=== PATIENT | female | born 1970 | race Caucasian/White ===

== ENCOUNTER 2018-03-21 18:19 | Emergency (ER) | payer BC ==
[2018-03-21] MEDS ORDERED: Lorazepam 2 MG/ML VIAL ONE (18:58)
[2018-03-21 19:02] LABS: #Basophils 0.1 thou/uL (0.0-0.2); #Lymphocytes 2.4 thou/uL (1.20-3.40); #Monocytes 0.7 thou/uL (0.11-0.59); #Neutrophils 4.4 thou/uL (1.40-6.50); %Basophils 1.6 % (0.0-1.0); %Eosinophils 0.3 % (0.0-10.0); %Monocytes 8.7 % (0.0-10.0); %Neutrophils 57.4 % (42.0-75.0); Hemoglobin 12.3 g/dL (12.0-16.0); Mean Corpuscular HGB CONC 33.4 g/dL (32.0-36.0); Mean Corpuscular Hemoglobin 29.3 pg (27.0-31.0); Mean Corpuscular Volume 87.8 fl (81.0-99.0); Mean Platelet Volume 6.5 fL (7.4-10.4); Platelet Count 265 thou/uL (130-400); Red Blood Cell (RBC) Count 4.18 mill/uL (4.20-5.40); White Blood Cell (WBC) Count 7.6 thou/uL (4.8-10.8)
[2018-03-21] MEDS ORDERED: Ondansetron HCl/PF 4 MG/2 ML Vial ONE (19:16)
[2018-03-21 19:26] LABS: ALT (SGPT) 54 U/L (8-55); AST (SGOT) 69 U/L (5-34); Albumin 4.2 g/dL (3.5-5.0); Alkaline Phosphatase 142 U/L (40-150); Anion Gap 13 mmol/L (10-20); BUN (Urea Nitrogen) 14 mg/dL (7.0-18.7); Bilirubin, Total 0.7 mg/dL (0.2-1.2); CK (CPK) 107 U/L (29-168); Calc. Creatinine Clearance 0 mL/min (70-130); Calcium 9.5 mg/dL (7.8-10.44); Carbon Dioxide 22 mmol/L (22-29); Chloride 106 mmol/L (98-107); Estimated GFR-MDRD 67; Globulin 3.4 g/dL (2.4-3.5); Glucose 78 mg/dL (70-105); Potassium 4.3 mmol/L (3.5-5.1); Protein, Total 7.6 g/dL (6.0-8.3); Sodium 137 mmol/L (136-145)
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
[2018-03-21 19:41] LABS: CKMB 0.5 ng/mL (0-6.6); Troponin I Less than 0.010 ng/mL (< 0.028)
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
[2018-03-21] MEDS ORDERED: Ketorolac Tromethamine 30 MG/ML VIAL ONE (20:53)
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
== END 2018-03-21 21:27 | disposition home or self-care (01) ==
LOC: ERS 18:19
DX: T67.5XXA Heat exhaustion, unspecified, initial encounter (principal); S93.602A Unspecified sprain of left foot, initial encounter; R55 Syncope and collapse; I10 Essential (primary) hypertension; M06.9 Rheumatoid arthritis, unspecified; E03.9 Hypothyroidism, unspecified; F41.9 Anxiety disorder, unspecified; F32.9 Major depressive disorder, single episode, unspecified; Z79.52 Long term (current) use of systemic steroids; Z79.899 Other long term (current) drug therapy; X58.XXXA Exposure to other specified factors, initial encounter
CPT/HCPCS: 36415; 70450; 71045; 72125; 80053; 82553; 84484; 85025; 93005; 94760; 96361; 96374; 96375; J1885; J2060; J2405

== ENCOUNTER 2018-05-18 08:37 | Outpatient (CLI) | payer BC | END 2018-05-18 08:38 | disposition home or self-care (01) | LOC: BICMAMMO 08:37 | PROVIDERS: ATTEND Internal Medicine Rheumatology | DX: M81.0 Age-related osteoporosis without current pathological fracture (principal) | CPT/HCPCS: 77080 ==

== ENCOUNTER 2018-07-27 15:16 | Outpatient (CLI) | payer BC ==
--- NOTE | 2018-07-27 18:09 | RAD ---
THREE VIEWS RIGHT FOOT: Date: 07-27-18 Provided Clinical History: Inflammatory polyarthropathy. FINDINGS: There is no evidence for fracture or other acute osseous abnormality. Alignment appears anatomic. Evelyn nt spaces appear preserved. No erosive changes are seen. Post-operative changes are seen involving th e calcaneus and first metatarsal. Mild osteophyte formation at the first TMT joint. IMPRESSION: No evidence for an acute osseous abnormality or significant arthropathy. POS: [facility]
--- NOTE | 2018-07-27 18:14 | RAD ---
TWO VIEWS RIGHT HAND: Date: 07-27-18 History: Inflammatory polyarthropathy. Osteoporosis. FINDINGS: There is no evidence of a fracture or dislocation involving the right hand. No joint space narrowing or articular erosions are seen. IMPRESSION: No acute osseous abnormality right hand. POS: [facility]
--- NOTE | 2018-07-27 18:15 | RAD ---
TWO VIEWS LEFT HAND: Date: 07-27-18 History: Inflammatory polyarthropathy. Osteoporosis. History of fracture of distal ulna and radius. FINDINGS: There is a remote fracture deformity involving the distal left radial metaphysis with slight loss of volar tilt of the radius due to fracture deformity. No acute fracture is seen. There is no evidence o f a dislocation. No significant joint space narrowing is seen. No articular erosions are identified. IMPRESSION: 1. No acute osseous abnormality. 2. Remote fracture deformity of the distal left radius. POS: [facility]
--- NOTE | 2018-07-27 18:21 | RAD ---
LEFT FOOT RADIOGRAPHS THREE VIEWS: Date: 07-27-18 Provided Clinical History: Inflammatory polyarthropathy. FINDINGS: Comparison 03-21-18. There is no evidence for fracture or other acute osseous abnormality. Alignment appears anatomic. Evelyn nt spaces appear preserved. No erosive changes are seen. Small plantar and posterior calcaneal enthes ophytes are noted. IMPRESSION: No evidence for an acute osseous abnormality or significant arthropathy. POS: [facility]
== END 2018-07-27 15:17 | disposition home or self-care (01) ==
LOC: BICRAD 15:16
PROVIDERS: ATTEND Allergy & Immunology Allergy
DX: M06.4 Inflammatory polyarthropathy (principal); M81.8 Other osteoporosis without current pathological fracture

== ENCOUNTER 2018-10-19 10:10 | Outpatient (CLI) | payer BC ==
--- NOTE | 2018-10-19 12:14 | CT ---
CT ABDOMEN AND PELVIS WITH IV AND ORAL CONTRAST: HISTORY: Lupus enteritis. Abdominal pain. Normal EGD and colonoscopy, per the patient. COMPARISON: 01/22/2017 FINDINGS: The lung bases are clear. The patient is post cholecystectomy and hysterectomy. The liver, spleen, pancreas, and adrenal glands are normal. Nonobstructing renal calculi are present. Renal cysts are again seen. No free air, free fluid, or lymphadenopathy is seen in the abdomen or pelvis. The small bowel loops are not abnormally dilated. No wall thickening of the small bowel loops is seen. There is fecal mat erial in the colon. Degenerative changes are present in the spine. There is no evidence of aneurysm al dilatation of the abdominal aorta. IMPRESSION: 1. No acute process. 2. Nonobstructing bilateral renal calculi. 3. Bilateral renal cysts. POS: [facility]
== END 2018-10-19 10:11 | disposition home or self-care (01) ==
LOC: BICCT 10:10
DX: R10.9 Unspecified abdominal pain (principal); N28.1 Cyst of kidney, acquired
CPT/HCPCS: 74177

== ENCOUNTER 2019-08-25 18:48 | Emergency (ER) | payer BC ==
[2019-08-25 19:42] LABS: #Basophils 0.1 thou/uL (0.0-0.2); #Lymphocytes 1.6 thou/uL (1.20-3.40); #Monocytes 0.5 thou/uL (0.11-0.59); #Neutrophils 3.8 thou/uL (1.40-6.50); %Basophils 1.5 % (0.0-1.0); %Eosinophils 0.4 % (0.0-10.0); %Lymphocytes 26.2 % (21.0-51.0); %Monocytes 8.9 % (0.0-10.0); Mean Corpuscular Hemoglobin 29.1 pg (27.0-31.0); Mean Corpuscular Volume 91.1 fL (78.0-98.0); Mean Platelet Volume 7.1 fL (7.4-10.4); Platelet Count 306 thou/uL (130-400); RBC Distribution Width 13.6 % (11.5-14.5); Red Blood Cell (RBC) Count 4.45 mill/uL (4.20-5.40); White Blood Cell (WBC) Count 6.1 thou/uL (4.8-10.8)
[2019-08-25] MEDS ORDERED: Mag-Al 1200 mg/1200 mg/30 ML UDCUP ONE (19:45)
[2019-08-25] MEDS ORDERED: Promethazine HCl 25 MG/ML VIAL ONE (19:45)
[2019-08-25] MEDS ORDERED: Lidocaine Viscous Sol 2% 15 ml UD Cup ONE (19:45)
[2019-08-25] MEDS ORDERED: Nitroglycerin 0.4 MG TAB 1 EACH ONE (19:46)
[2019-08-25 20:01] LABS: ALT (SGPT) 18 U/L (8-55); AST (SGOT) 32 U/L (5-34); Albumin 4.5 g/dL (3.5-5.0); Alkaline Phosphatase 124 U/L (40-110); Anion Gap 15 mmol/L (10-20); BUN (Urea Nitrogen) 10 mg/dL (7.0-18.7); Bilirubin, Total 0.5 mg/dL (0.2-1.2); Calc. Creatinine Clearance 0 mL/min (70-130); Calcium 9.7 mg/dL (7.8-10.44); Carbon Dioxide 26 mmol/L (22-29); Chloride 101 mmol/L (98-107); Estimated GFR-MDRD 68; Globulin 3.5 g/dL (2.4-3.5); Glucose 92 mg/dL (70-105); Lipase 83 U/L (8-78); Potassium 3.7 mmol/L (3.5-5.1); Sodium 138 mmol/L (136-145)
[2019-08-25] MEDS ORDERED: Metoclopramide HCl 10 MG/2 ML VIAL ONE (20:28)
[2019-08-25] MEDS ORDERED: diphenhydrAMINE 50 MG/ML VIAL ONE (20:28)
== END 2019-08-25 21:20 | disposition home or self-care (01) ==
LOC: ERS 18:48
DX: K22.4 Dyskinesia of esophagus (principal); I10 Essential (primary) hypertension; E06.3 Autoimmune thyroiditis; F41.9 Anxiety disorder, unspecified; F32.9 Major depressive disorder, single episode, unspecified; Z79.899 Other long term (current) drug therapy
CPT/HCPCS: 80053; 83690; 84484; 85025; 93005; 96365; 96375; J1200; J2550; J2765

== ENCOUNTER 2023-09-21 18:46 | Inpatient (IN) | payer BC ==
[~2023-09-21 18:46] MED LIST: Iopamidol-370 76% 500 ML MDV (1 ML CHARGE) ONE
[2023-09-21 19:26] LABS: #Eosinphils 0.1 thou/uL (0.0-0.7); #Monocytes 1.2 thou/uL (0.11-0.59); #Neutrophils 8.1 thou/uL (1.40-6.50); %Basophils 0.3 % (0.0-1.0); %Eosinophils 0.7 % (0.0-10.0); %Lymphocytes 20.7 % (21.0-51.0); %Monocytes 9.8 % (0.0-10.0); %Neutrophils 68.2 % (42.0-75.0); Hematocrit 36.5 % (36.0-47.0); Hemoglobin 11.2 g/dL (12.0-16.0); Mean Corpuscular HGB CONC 30.7 g/dL (32.0-36.0); Mean Corpuscular Hemoglobin 23.9 pg (27.0-31.0); Mean Platelet Volume 9.7 fL (7.4-10.4); Platelet Count 439 10x3/uL (130-400); Red Blood Cell (RBC) Count 4.68 mill/uL (4.20-5.40); White Blood Cell (WBC) Count 11.9 10x3/uL (4.8-10.8)
[2023-09-21] MEDS ORDERED: fentaNYL 50 mcg/mL 1 mL Vial ONE (19:26)
[2023-09-21 19:39] LABS: INR-International Normal Ratio 1.1; PTT 35.8 sec (22.9-36.1); Prothrombin Time 14.8 sec (12.0-14.7)
[2023-09-21 19:54] LABS: Troponin I Less than 0.010 ng/mL (< 0.028)
[2023-09-21 20:12] LABS: ALT (SGPT) 9 U/L (8-55); AST (SGOT) 18 U/L (5-34); Albumin 3.9 g/dL (3.5-5.0); Alkaline Phosphatase 94 U/L (40-110); Anion Gap 16 mmol/L (10-20); BUN (Urea Nitrogen) 14 mg/dL (9.8-20.1); Calc. Creatinine Clearance 0 mL/min (70-130); Calcium 9.9 mg/dL (7.8-10.44); Carbon Dioxide 23 mmol/L (22-29); Chloride 99 mmol/L (98-107); Estimated GFR 65; Globulin 4.3 g/dL (2.4-3.5); Glucose 100 mg/dL (70-105); Potassium 3.7 mmol/L (3.5-5.1); Protein, Total 8.2 g/dL (6.0-8.3); Sodium 134 mmol/L (136-145)
[2023-09-21 20:40] LABS: SARS-CoV-2 NAA Rapid Test Not Detected (NotDetected)
[2023-09-21] MEDS ORDERED: Acetaminophen 325 MG TAB PO PRN (20:45)
[2023-09-21] MEDS ORDERED: Ondansetron PF 4 MG/2 ML Vial IVP PRN (20:45)
[2023-09-21] MEDS: Morphine 2 MG/ML VIAL SLOW IVP PRN (23:31)
[2023-09-21 23:35] VITALS: BMI 28.1
[2023-09-22] MEDS: Metoprolol Tartrate 25 MG TAB PO SCH ×2 (01:31→09:48)
[2023-09-22] MEDS: HYDROcodone/Acetaminophen 10/325 mg Tablet PO PRN ×2 (02:03→06:31)
[2023-09-22 04:52] LABS: #Eosinphils 0.1 thou/uL (0.0-0.7); #Monocytes 1.1 thou/uL (0.11-0.59); #Neutrophils 5.4 thou/uL (1.40-6.50); %Basophils 0.3 % (0.0-1.0); %Lymphocytes 27.8 % (21.0-51.0); %Monocytes 12.2 % (0.0-10.0); %Neutrophils 58.3 % (42.0-75.0); Hematocrit 32.4 % (36.0-47.0); Hemoglobin 9.8 g/dL (12.0-16.0); Mean Corpuscular HGB CONC 30.2 g/dL (32.0-36.0); Mean Corpuscular Hemoglobin 23.8 pg (27.0-31.0); Mean Corpuscular Volume 78.8 fl (78.0-98.0); Mean Platelet Volume 10.1 fL (7.4-10.4); Platelet Count 401 10x3/uL (130-400); RBC Distribution Width 16.9 % (11.5-14.5); Red Blood Cell (RBC) Count 4.11 mill/uL (4.20-5.40); White Blood Cell (WBC) Count 9.2 10x3/uL (4.8-10.8)
[2023-09-22 05:23] LABS: Anion Gap 12 mmol/L (10-20); BUN (Urea Nitrogen) 12 mg/dL (9.8-20.1); Calc. Creatinine Clearance 127 mL/min (70-130); Calcium 9.3 mg/dL (7.8-10.44); Carbon Dioxide 24 mmol/L (22-29); Chloride 99 mmol/L (98-107); Estimated GFR 102; Glucose 89 mg/dL (70-105); Potassium 3.6 mmol/L (3.5-5.1); Sodium 131 mmol/L (136-145)
[2023-09-22] MEDS ORDERED: Levothyroxine Sodium 75 MCG TAB PO SCH (06:00)
[2023-09-22] MEDS ORDERED: predniSONE 20 MG TAB PO SCH (08:00)
[2023-09-22] MEDS ORDERED: FLU VACC QS2023-24(6MOS UP)/PF 60 MCG/0.5 ML SYRINGE IM ONE (09:00)
[2023-09-22] MEDS: Sertraline 25 MG TAB PO SCH (09:47)
[2023-09-22] MEDS: Venlafaxine 75 MG TAB PO SCH (09:47)
[2023-09-22] MEDS: Meclizine HCl 25 MG TAB PO SCH ×3 (09:47→20:12)
[2023-09-22] MEDS ORDERED: Levothyroxine Sodium 50 MCG TAB PO SCH (10:00)
[2023-09-22] MEDS: Morphine 2 MG/ML VIAL SLOW IVP PRN ×3 (11:14→22:55)
[2023-09-22] MEDS: Acetaminophen/Codeine 30-300mg Tablet PO PRN ×2 (15:28→21:48)
[2023-09-22] MEDS: Gabapentin 300 MG CAP PO SCH (20:11)
[2023-09-22] MEDS ORDERED: traZODone HCl 50 MG TAB PO SCH (21:00)
[2023-09-22] MEDS ORDERED: QUEtiapine 200 MG TAB PO SCH ×2 (21:00)
[2023-09-23] MEDS ORDERED: Levothyroxine Sodium 50 MCG TAB PO SCH (06:00)
[2023-09-23] MEDS: Venlafaxine 75 MG TAB PO SCH (08:02)
[2023-09-23] MEDS: Meclizine HCl 25 MG TAB PO SCH (08:02)
[2023-09-23] MEDS: Gabapentin 300 MG CAP PO SCH (08:02)
[2023-09-23] MEDS: Sertraline 25 MG TAB PO SCH (08:02)
[2023-09-23] MEDS: Morphine 2 MG/ML VIAL SLOW IVP PRN (08:02)
[2023-09-23] MEDS: Acetaminophen/Codeine 30-300mg Tablet PO PRN (09:30)
[2023-09-23 11:54] VITALS: BP 131/79; TEMP 98.5
[2023-09-23] MEDS ORDERED: tiZANidine HCl 4 MG TAB PO SCH (21:00)
[2023-09-23] MEDS ORDERED: Apixaban 5 MG TAB PO SCH (21:00)
== END 2023-09-23 11:58 | disposition home or self-care (01) | DRG 299 ==
LOC: ERS 18:46 → 2NO 20:49 → OBSVTOIN 09-23 10:13
PROVIDERS: ADMIT Student in an Organized Health Care Education/Training Program; ATTEND Internal Medicine
DX: I82.409 Acute embolism and thrombosis of unspecified deep veins of unspecified lower extremity (principal); I26.93 Single subsegmental thrombotic pulmonary embolism without acute cor pulmonale; J98.11 Atelectasis; J90 Pleural effusion, not elsewhere classified; E87.1 Hypo-osmolality and hyponatremia; F41.9 Anxiety disorder, unspecified; F32.A Depression, unspecified; I10 Essential (primary) hypertension; M79.7 Fibromyalgia; S99.912A Unspecified injury of left ankle, initial encounter; F32.9 Major depressive disorder, single episode, unspecified; Z79.890 Hormone replacement therapy; Z79.899 Other long term (current) drug therapy; Z98.891 History of uterine scar from previous surgery; Z90.710 Acquired absence of both cervix and uterus; Z90.49 Acquired absence of other specified parts of digestive tract; Z98.890 Other specified postprocedural states; Z83.3 Family history of diabetes mellitus; Z82.49 Family history of ischemic heart disease and other diseases of the circulatory system
CPT/HCPCS: 36415; 71045; 71275; 80048; 80053; 83880; 84484; 84702; 85025; 85610; 85730; 93005; 93970; J1650; J2272; J3010; U0002